=== PATIENT | female | born 1965 | race Hispanic/Latino ===

== ENCOUNTER 2020-12-23 18:29 | Emergency (ER) | payer SELFPAY ==
[2020-12-23] MEDS ORDERED: MORPHINE 4 MG/ML SYR ONE (19:28)
[2020-12-23] MEDS ORDERED: ONDANSETRON 4 MG/2 ML VIAL ONE (19:28)
--- NOTE | 2020-12-23 20:16 | ER ---
Nurse's Notes [facility] Name: Kaykay Mathews Age: 55 yrs Sex: Female : 1965 Arrival Date: 12/23/2020 Time: 18:33 Bed 20 Private MD: Diagnosis: Strain of muscle, fascia and tendon at neck level;Strain of muscle, fascia and tendon of lower back Presentation: 12/23 18:35 Chief complaint: Spouse and/or significant other states: "She got hit the head with the jd3 car door which nocked her off her feet and landed pretty hard on her head backwards. no LOC. but she is reporting pain and feeling very tired.". Coronavirus screen: At this time, the client does not indicate any symptoms associated with coronavirus-19. Ebola Screen: Patient negative for fever greater than or equal to 101.5 degrees Fahrenheit, and additional compatible Ebola Virus Disease symptoms. Initial Sepsis Screen: Does the patient meet any 2 criteria? No. Patient's initial sepsis screen is negative. Does the patient have a suspected source of infection? No. Patient's initial sepsis screen is negative. Risk Assessment: Do you want to hurt yourself or someone else? Patient reports no desire to harm self or others. Onset of symptoms was December 23, 2020. 18:35 Method Of Arrival: Ambulatory jd3 18:35 Acuity: AIME 3 jd3 Historical: - Allergies: 18:43 No Known Allergies; jd3 - Home Meds: 18:43 Protonix Oral [Active]; jd3 - PMHx: 18:43 None; jd3 - PSHx: 18:43 None; jd3 - Immunization history:: Adult Immunizations up to date. - Social history:: Smoking status: Patient denies any tobacco usage or history of. Screenin:25 Abuse screen: Denies threats or abuse. Denies injuries from another. Nutritional zb screening: No deficits noted. Tuberculosis screening: No symptoms or risk factors identified. Fall Risk None identified. Assessment: 19:23 General: Appears uncomfortable, Behavior is appropriate for age. Pain: Complains of zb pain in posterior chest, buttocks, back and scalp Pain currently is 8 out of 10 on a pain scale. Quality of pain is described as aching, sharp. Neuro: Level of Consciousness is awake, alert, obeys commands, Oriented to person, place, time, situation. Cardiovascular: Heart tones S1 S2 present Patient's skin is warm and dry. Respiratory: Airway is patent Respiratory effort is even, unlabored, Respiratory pattern is regular, symmetrical. Derm: Skin is intact, is healthy with good turgor, Skin is dry, Skin is normal, Skin temperature is warm. Musculoskeletal: Circulation, motion, and sensation intact. Range of motion: intact in all extremities. Injury Description: Head injury. 20:00 Reassessment: patient denied using urine for restroom. advised patient of the risk of zb walking before CT. patient stated that she was aware and still wanted to walk to restroom. 20:12 Reassessment: Patient appears in no apparent distress at this time. Patient and/or zb family updated on plan of care and expected duration. Pain level reassessed. Patient is alert, oriented x 3, equal unlabored respirations, skin warm/dry/pink. pain decreased patient rates pain minimal. Vital Signs: 18:44 BP 137 / 83; Pulse 86; Resp 17 S; Temp 97.6(TE); Pulse Ox 99% on R/A; Weight 70.76 kg jd3 (R); Height 5 ft. 2 in. (157.48 cm) (R); Pain 10/10; 18:44 Body Mass Index 28.53 (70.76 kg, 157.48 cm) jd3 ED Course: 18:33 Patient arrived in ED. mr 18:36 Triage completed. jd3 18:45 Arm band placed on. jd3 18:46 Manpreet Lucero PA is PHCP. [facility] 18:47 Kimmy Hong MD is Attending Physician. [facility] 18:55 Cyndee Infante RN is Primary Nurse. zb 19:20 Inserted saline lock: 20 gauge in right antecubital area, using aseptic technique. zb Blood collected. 19:25 Patient has correct armband on for positive identification. Placed in gown. Bed in low zb position. Call light in reach. Pulse ox on. NIBP on. Door closed. Noise minimized. Warm blanket given. 19:50 CT Traumagram (Head C Spine CAP W Con) In Process Unspecified. EDMS Administered Medications: 19:18 Drug: morphine 4 mg {Note: RASS 0.} Route: IVP; Site: right antecubital; zb 19:30 Follow up: Response: No adverse reaction; Marked relief of symptoms; Pain is decreased zb 19:18 Drug: Zofran (Ondansetron) 4 mg Route: IVP; Site: right antecubital; zb 19:30 Follow up: Response: No adverse reaction zb Outcome: 20:15 Discharge ordered by MD. to 20:34 Patient left the ED. zb Signatures: Dispatcher [employer] EDMS Manpreet Lucero PA PA jmm Rivera, Mary mr Jean, ANKITA Tejeda RN Cyndee Medina RN RN zb Corrections: (The following items were deleted from the chart) 18:45 18:35 Chief complaint: Spouse and/or significant other states: "She got hit the head jd3 with the car door which nocked her off her feet and landed pretty hard on her head backwards. no LOC." jd3 18:46 18:44 Pulse 86bpm; Resp 17bpm; Spontaneous; Pulse Ox 99% RA; Temp 97.6F Temporal; 70.76 jd3 kg Reported; Height 5 ft. 2 in. Reported; BMI: 28.5; Pain 10/; jd3
--- NOTE | 2020-12-23 20:16 | EDPHYS ---
Physician Documentation [facility] Name: Kaykay Mathews Age: 55 yrs Sex: Female : 1965 Arrival Date: 12/23/2020 Time: 18:33 Bed 20 Private MD: ED Physician Kimmy Hong HPI: 12/23 18:52 This 55 yrs old Female presents to ER via Ambulatory with complaints of Head jmm Injury Without LOC-Adult, Neck pain, Back Pain. 18:52 The patient or guardian reports injury, pain. Onset: The symptoms/episode jmm began/occurred acutely, just prior to arrival. Associated signs and symptoms: Loss of consciousness: This patient did not experience any loss of consciousness. Pertinent positives:. This is a 55 year old female with no chronic medical conditions that presents to the ED with complaints of neck pain, headache, back pain. Patient hit with a car door, falling backwards into a sand embankment, hitting her neck against a hard object. Denies LOC. . Historical: - Allergies: 18:43 No Known Allergies; jd3 - Home Meds: 18:43 Protonix Oral [Active]; jd3 - PMHx: 18:43 None; jd3 - PSHx: 18:43 None; jd3 - Immunization history:: Adult Immunizations up to date. - Social history:: Smoking status: Patient denies any tobacco usage or history of. ROS: 18:52 Constitutional: Negative for fever, chills, and weight loss. jmm 18:52 Neck: Positive for pain with movement. 18:52 Back: Positive for pain with movement. 18:52 All other systems are negative. Exam: 18:52 Constitutional: This is a well developed, well nourished patient who is awake, alert, jmm and in no acute distress. Head/Face: atraumatic. Eyes: EOMI, no conjunctival erythema appreciated ENT: Moist Mucus Membranes 18:52 Chest/axilla: Normal chest wall appearance and motion. Cardiovascular: Regular rate and rhythm. No edema appreciated Respiratory: Normal respirations, no respiratory distress appreciated Abdomen/GI: Non distended, soft 18:52 Skin: General appearance color normal MS/ Extremity: Moves all extremities, no obvious deformities appreciated, no edema noted to the lower extremities Neuro: Awake and alert, normal gait Psych: Behavior is normal, Mood is normal, Patient is cooperative and pleasant 18:52 Neck: C-spine: C-collar placed in ED. 18:52 Back: pain, that is moderate, of the lumbar area. Vital Signs: 18:44 BP 137 / 83; Pulse 86; Resp 17 S; Temp 97.6(TE); Pulse Ox 99% on R/A; Weight 70.76 kg jd3 (R); Height 5 ft. 2 in. (157.48 cm) (R); Pain 10/10; 18:44 Body Mass Index 28.53 (70.76 kg, 157.48 cm) jd3 MDM: 18:52 Patient medically screened. [facility] 20:12 Data reviewed: vital signs, nurses notes. Counseling: I had a detailed discussion with [facility] the patient and/or guardian regarding: the historical points, exam findings, and any diagnostic results supporting the discharge/admit diagnosis, the need for outpatient follow up, to return to the emergency department if symptoms worsen or persist or if there are any questions or concerns that arise at home. 12/23 18:54 Order name: CT Traumagram (Head C Spine CAP W Con) [facility] 12/23 18:54 Order name: Saline Lock; Complete Time: 19:17 [facility] Administered Medications: 19:18 Drug: morphine 4 mg {Note: RASS 0.} Route: IVP; Site: right antecubital; zb 19:30 Follow up: Response: No adverse reaction; Marked relief of symptoms; Pain is decreased zb 19:18 Drug: Zofran (Ondansetron) 4 mg Route: IVP; Site: right antecubital; zb 19:30 Follow up: Response: No adverse reaction zb Disposition: 12/23/20 20:15 Discharged to Home. Impression: Strain of muscle, fascia and tendon at neck level, Strain of muscle, fascia and tendon of lower back. - Condition is Stable. - Discharge Instructions: Back Pain, Adult, Cervical Sprain. - Prescriptions for Ibuprofen 800 mg Oral Tablet - take 1 tablet by ORAL route every 8 hours As needed take with food; 30 tablet. orphenadrine citrate 100 mg Oral Tablet Sustained Release - take 1 tablet by ORAL route 2 times per day As needed; 20 tablet. - Medication Reconciliation Form, Thank You Letter, Antibiotic Education, Prescription Opioid Use form. - Follow up: Private Physician; When: 2 - 3 days; Reason: Recheck today's complaints, Continuance of care, Re-evaluation by your physician. Signatures: Dispatcher [employer] Manpreet Vasques PA PA jmm Davies, Jonathon RN RN jCyndee Connolly RN RN zb Corrections: (The following items were deleted from the chart) 20:34 20:15 12/23/2020 20:15 Discharged to Home. Impression: Strain of muscle, fascia and zb tendon at neck level; Strain of muscle, fascia and tendon of lower back. Condition is Stable. Forms are Medication Reconciliation Form, Thank You Letter, Antibiotic Education, Prescription Opioid Use. Follow up: Private Physician; When: 2 - 3 days; Reason: Recheck today's complaints, Continuance of care, Re-evaluation by your physician. zuleika
[2020-12-23 20:52] VITALS: BP 137/83; TEMP 97.6; O2SAT 99
--- NOTE | 2020-12-23 21:40 | RAD REPORT ---
EXAM DESCRIPTION: CT - Head C Spine Cap W Adolfo - 12/23/2020 7:50 pm CLINICAL HISTORY: Head injury, neck injury, back injury COMPARISON: No comparisons TECHNIQUE: Axial [address] head images were obtained. Axial [address] cervical spine images were obtaine d with sagittal and coronal reconstruction images reviewed. During dynamic enhancement of 100mL non-i onic contrast, axial 5 mm images of the chest, abdomen and pelvis were obtained. Biphasic technique p erformed of the abdomen and pelvis. All CT scans are performed using dose optimization technique as appropriate and may include automated exposure control or mA/KV adjustment according to patient size. FINDINGS: No intracranial hemorrhage, mass or edema. No midline shift or abnormal fluid collection. Mastoid air cells and paranasal sinuses are clear. No skull fracture. CT cervical spine imaging shows normal height. Normal alignment of the vertebrae. No disc space narro wing. No paraspinal mass or hematoma seen. Central canal detail is inherently limited. Concerns for t raumatic disc herniation or traumatic cord injury can be further addressed with MR imaging. CT chest shows no pneumothorax, pulmonary contusion or pleural fluid collection. No mediastinal hemat enrike and the aorta and pulmonary arteries are unremarkable. No chest will mass or abnormal axillary fi nding. No displaced rib fracture or other significant bony finding. CT abdomen and pelvis show no injury to solid abdominal viscera. Gallbladder and biliary tree are unr emarkable. No bowel injury or significant finding. No free air, free fluid or abnormal stranding. No urinary bladder abnormality. No significant bony finding. No significant vascular finding. Due to technical malfunction with the [employer] system, report could not be generated at the time of the study. Findings were telephoned to the referring clinician at the time of the study. IMPRESSION: No significant CT Head finding. No significant CT Cervical Spine finding. No significant CT Chest finding. No significant CT Abdomen and Pelvis finding.
== END 2020-12-23 20:34 | disposition home or self-care (01) ==
LOC: ER 18:29
DX: S16.1XXA Strain of muscle, fascia and tendon at neck level, initial encounter (principal); S39.012A Strain of muscle, fascia and tendon of lower back, initial encounter; W18.39XA Other fall on same level, initial encounter
CPT/HCPCS: 70450; 71260; 72125; 74177; 82565; J2405; Q9967